=== PATIENT | male | born 1960 | race Caucasian/White ===

== ENCOUNTER → 2017-04-26 | Outpatient (CLI) | payer OTHER ==
[~2017-04-26] MED LIST: ASPI1TAB69 PO; TRAM50TA PO
[2017-04-26 08:12] LABS: RHEUMATOID FACTOR TRIGGER 10.2 IU/ML (0.0-14.9)
[2017-04-26 08:53] LABS: CREATINE KINASE 131 U/L (39-308); FREE T4 0.92 NG/DL (0.76-1.46); IMMUNOGLOBULIN A 221 MG/DL (93-514); IMMUNOGLOBULIN G 935 MG/DL (660-1640); IMMUNOGLOBULIN M 141 MG/DL (40-247); KAPPA LAMBDA RATIO 2.25 (1.57-3.93); LAMBDA LIGHT CHAIN 112 MG/DL (90-210); TOTAL PROTEIN SPE 7.8 GM/DL (6.0-7.6)
[2017-04-26 11:37] LABS: HEMOGLOBIN A1b 1.3 %; HEMOGLOBIN Ao 86.1 %; HEMOGLOBIN F 0.3 %; HEMOGLOBIN P3 3.6 %
[2017-04-27 13:39] LABS: ANA SCREEN NEG (NEG)
[2017-04-27 23:08] LABS: ALBUMIN SPE 5.02 GM/DL (3.50-5.00); ALPHA 1 GLOBULIN 0.15 GM/DL (0.11-0.29); ALPHA 2 GLOBULIN 0.77 GM/DL (0.22-1.00); BETA GLOBULINS (SPE) 0.93 GM/DL (0.53-1.03)
[2017-05-01 03:49] LABS: VITAMIN B6 15.3 ng/mL (2.1-21.7)
== END ==
LOC: CLAB 06:55
PROVIDERS: ATTEND Psychiatry & Neurology Neurology
DX: G57.82 Other specified mononeuropathies of left lower limb (principal); E71.120 Methylmalonic acidemia; A53.0 Latent syphilis, unspecified as early or late; R94.6 Abnormal results of thyroid function studies; R70.0 Elevated erythrocyte sedimentation rate; R76.8 Other specified abnormal immunological findings in serum; M05.9 Rheumatoid arthritis with rheumatoid factor, unspecified; R53.1 Weakness; G93.3 Postviral and related fatigue syndromes; E74.12 Hereditary fructose intolerance; E53.8 Deficiency of other specified B group vitamins; D52.9 Folate deficiency anemia, unspecified; M31.6 Other giant cell arteritis; R78.79 Finding of abnormal level of heavy metals in blood; R79.82 Elevated C-reactive protein (CRP); E03.9 Hypothyroidism, unspecified
CPT/HCPCS: 36415; 82085; 82550; 82607; 82746; 82784; 83036; 83883; 83921; 84165; 84207; 84425; 84439; 84443; 85652; 86038; 86140; 86334; 86430; 86592

== ENCOUNTER → 2017-06-06 | Outpatient (CLI) | payer OTHER ==
[2017-06-06 08:16] LABS: AUTOMATED NEUTROPHIL # 2.4 TH/MM3 (1.8-7.7); BASOPHIL # 0.1 TH/MM3 (0-0.2); BASOPHIL % 1.5 % (0.0-2.0); EOSINOPHIL # 0.1 TH/MM3 (0-0.4); EOSINOPHIL % 2.5 % (0.0-4.0); HEMATOCRIT 45.2 % (39.0-51.0); HEMOGLOBIN 15.1 GM/DL (13.0-17.0); LYMPH % 33.2 % (9.0-44.0); LYMPHOCYTE # 1.5 TH/MM3 (1.0-4.8); MEAN CELL VOLUME 90.8 FL (80.0-100.0); MEAN CORPUSCULAR HEMOGLOBIN 30.4 PG (27.0-34.0); MEAN CORPUSCULAR HGB CONC 33.5 % (32.0-36.0); MEAN PLATELET VOLUME 8.3 FL (7.0-11.0); MONO % 10.9 % (0.0-8.0); MONOCYTE # 0.5 TH/MM3 (0-0.9); NEUT % 51.9 % (16.0-70.0); PLATELET COUNT 189 TH/MM3 (150-450); RED BLOOD COUNT 4.98 MIL/MM3 (4.50-5.90); RED CELL DISTRIBUTION WIDTH 13.3 % (11.6-17.2); WHITE BLOOD COUNT 4.6 TH/MM3 (4.0-11.0)
[2017-06-06 08:46] LABS: ALBUMIN 4.3 GM/DL (3.4-5.0); ALT (GPT) 30 U/L (12-78); AST (GOT) 17 U/L (15-37); BICARBONATE 29.2 MEQ/L (21.0-32.0); BLOOD UREA NITROGEN 20 MG/DL (7-18); CALCIUM 8.9 MG/DL (8.5-10.1); CHLORIDE 104 MEQ/L (98-107); CREATININE 0.72 MG/DL (0.60-1.30); GLOMERULAR FILTRATION RATE 113 ML/MIN (>89); GLUCOSE,FASTING 101 MG/DL (74-99); SODIUM (NA) 140 MEQ/L (136-145)
[2017-06-06 08:49] LABS: ALKALINE PHOSPHATASE 60 U/L (45-117); TOTAL BILIRUBIN ADULT 0.6 MG/DL (0.2-1.0); TOTAL PROTEIN 7.5 GM/DL (6.4-8.2)
[2017-06-11 10:37] LABS: ALB/GLOB RATIO (SPE) 1.87 (1.39-2.23)
== END ==
LOC: CLAB 07:25
PROVIDERS: ATTEND Internal Medicine
DX: G57.73 Causalgia of bilateral lower limbs (principal); M47.817 Spondylosis without myelopathy or radiculopathy, lumbosacral region
CPT/HCPCS: 36415; 80053; 82232; 84165; 85025; 86335

== ENCOUNTER → 2017-07-17 | Outpatient (CLI) | payer OTHER ==
[2017-07-17 10:05] LABS: BLOOD, URINE NEG (NEG); GLUCOSE,URINE NEG (NEG); KETONE, URINE NEG (NEG); MUCUS URINE MOD /lpf (OCC); NITRITE,URINE NEG (NEG); PH, URINE 6.5 (5.0-8.5); SQUAMOUS EPITHELIAL CELL URINE <1 /hpf (0-5); URINE COLOR YELLOW (YELLW/STRAW)
== END ==
LOC: CLAB 09:40
PROVIDERS: ATTEND Family Medicine
DX: R10.9 Unspecified abdominal pain (principal)
CPT/HCPCS: 81001

== ENCOUNTER → 2017-08-21 | Outpatient (CLI) | payer OTHER ==
[2017-08-21 07:42] LABS: AUTOMATED NEUTROPHIL # 2.4 TH/MM3 (1.8-7.7); BASOPHIL # 0.1 TH/MM3 (0-0.2); BASOPHIL % 1.9 % (0.0-2.0); EOSINOPHIL # 0.1 TH/MM3 (0-0.4); EOSINOPHIL % 3.1 % (0.0-4.0); HEMATOCRIT 42.7 % (39.0-51.0); HEMOGLOBIN 14.6 GM/DL (13.0-17.0); LYMPH % 32.8 % (9.0-44.0); LYMPHOCYTE # 1.6 TH/MM3 (1.0-4.8); MEAN CELL VOLUME 89.7 FL (80.0-100.0); MEAN CORPUSCULAR HEMOGLOBIN 30.6 PG (27.0-34.0); MEAN CORPUSCULAR HGB CONC 34.1 % (32.0-36.0); MEAN PLATELET VOLUME 8.5 FL (7.0-11.0); MONO % 11.2 % (0.0-8.0); MONOCYTE # 0.5 TH/MM3 (0-0.9); PLATELET COUNT 211 TH/MM3 (150-450); RED BLOOD COUNT 4.76 MIL/MM3 (4.50-5.90); RED CELL DISTRIBUTION WIDTH 13.8 % (11.6-17.2); WHITE BLOOD COUNT 4.8 TH/MM3 (4.0-11.0)
[2017-08-21 07:52] LABS: ALBUMIN 4.3 GM/DL (3.4-5.0); ALT (GPT) 25 U/L (12-78); AST (GOT) 15 U/L (15-37); BICARBONATE 31.3 MEQ/L (21.0-32.0); BLOOD UREA NITROGEN 19 MG/DL (7-18); CALCIUM 8.7 MG/DL (8.5-10.1); CHLORIDE 106 MEQ/L (98-107); CREATININE 0.67 MG/DL (0.60-1.30); GLOMERULAR FILTRATION RATE 123 ML/MIN (>89); GLUCOSE,FASTING 104 MG/DL (74-99); SODIUM (NA) 143 MEQ/L (136-145)
[2017-08-21 08:04] LABS: ALKALINE PHOSPHATASE 63 U/L (45-117); IMMUNOGLOBULIN A 225 MG/DL (93-514); IMMUNOGLOBULIN G 1010 MG/DL (660-1640); IMMUNOGLOBULIN M 132 MG/DL (40-247); KAPPA LIGHT CHAIN 276 MG/DL (170-370); LAMBDA LIGHT CHAIN 120 MG/DL (90-210); TOTAL BILIRUBIN ADULT 0.7 MG/DL (0.2-1.0); TOTAL PROTEIN 7.3 GM/DL (6.4-8.2)
[2017-08-21 08:05] LABS: IMMUNOGLOBULIN A 224 MG/DL (93-514); IMMUNOGLOBULIN G 964 MG/DL (660-1640); IMMUNOGLOBULIN M 141 MG/DL (40-247)
[2017-08-21 21:55] LABS: ALB/GLOB RATIO (SPE) 1.98 (1.39-2.23)
[2017-08-24 03:51] LABS: KAPPA/LAMBDA FREE 1.21 (0.26-1.65)
== END ==
LOC: CLAB 06:59
PROVIDERS: ATTEND Internal Medicine
DX: D47.2 Monoclonal gammopathy (principal)
CPT/HCPCS: 36415; 80053; 82784; 83883; 84165; 85025; 86334